=== PATIENT | male | born 1975 | race Caucasian/White ===

== ENCOUNTER 2024-02-05 19:30 | Emergency (ER) | payer OTHER ==
[2024-02-05] VITALS (12 sets, daily range): BP systolic 84–122; BP diastolic 46–77
[~2024-02-05] VITALS: Ht 180.3 cm; Wt 95.3 kg
[2024-02-05] MEDS ORDERED: SODIUM CHLORIDE 0.9% 1,000 ML IV STA (20:41)
[2024-02-05] MEDS ORDERED: PROMETHAZINE HCL 25 MG/ML AMP IV ONE (20:45)
[2024-02-05] MEDS ORDERED: ACETAMINOPHEN 500 MG TAB PO ONE (20:45)
[2024-02-05] MEDS ORDERED: KETOROLAC TROMETHAMINE 30 MG/ML SDV IV ONE (20:45)
[2024-02-05 20:53] LABS: URINE BILIRUBIN - DIPSTICK Negative (NEGATIVE); URINE BLOOD DIPSTICK Trace-lysed (NEGATIVE); URINE GLUCOSE - DIPSTICK Negative (NEGATIVE); URINE KETONE Negative (NEGATIVE); URINE LEUK ESTERASE Negative (NEGATIVE); URINE NITRITE - DIPSTICK Negative (Negative); URINE PROTEIN - DIPSTICK Negative (NEG-TRACE); URINE SPECIFIC GRAVITY 1.025
[2024-02-05 20:53] LABS: BASO% 0.3 % (0-3); EOS% 1.7 % (0-8); HEMATOCRIT 42.8 % (39.0-50.0); HEMOGLOBIN 14.4 g/dl (14.0-18.0); IMMATURE GRANULOCYTES 0.2 % (0.0-5.0); MEAN CELL VOLUME 89.7 fL CALC (80.0-100.0); MEAN CORPUSCULAR HGB 30.2 pG CALC (26.0-32.0); MEAN CORPUSCULAR HGB CONC 33.6 g/dL CAL (32.0-36.0); MONO% 10.1 % (2-13); NEUT# 10.25 thou/uL (1.82-7.42); NEUT% 77.7 % (42-76); RED BLOOD COUNT 4.77 mill/uL (4.70-6.10); RED CELL DISTRI WIDTH 13.3 % (11.5-15.5)
[2024-02-05 20:54] LABS: URINE COLOR Yellow
[2024-02-05 21:09] LABS: ALBUMIN 4.8 g/dL (3.2-5.0); BILIRUBIN, TOTAL 1.2 mg/dL (0.2-1.3); CREATININE 1.4 mg/dL (0.7-1.3); POTASSIUM 3.9 mmol/l (3.5-5.1)
[2024-02-05] MEDS ORDERED: HYDROcodone 5 MG/Acetaminophen 325 MG/COMBO PO ONE (23:35)
[2024-02-05] MEDS ORDERED: metroNIDAZOLE 500 MG/TAB PO ONE (23:35)
[2024-02-05] MEDS ORDERED: METRONIDAZOLE500 MG PO (23:35)
[2024-02-05] MEDS ORDERED: CIPROFLOXACIN HCL 500 MG/TAB PO ONE (23:35)
[2024-02-05] MEDS ORDERED: CIPROFLOXACN500 MG PO (23:35)
[2024-02-05] MEDS ORDERED: LORTAB 5/3255 MG PO (23:35)
== END 2024-02-06 00:25 | disposition home or self-care (01) | DRG 392 ==
LOC: ED 19:30
PROVIDERS: Family Medicine
DX: K57.32 Diverticulitis of large intestine without perforation or abscess without bleeding (principal)
CPT/HCPCS: Q9967